=== PATIENT | male | born 1990 | race African-American/Black ===

== ENCOUNTER 2022-12-22 23:41 | Emergency (ER) | payer MEDICAID, OTHER ==
[~2022-12-22] VITALS: Ht 185.4 cm; Wt 73.0 kg
[2022-12-22 23:44] VITALS: O2SAT 98
[2022-12-23] MEDS ORDERED: METH-653 MT (00:15)
[2022-12-23] MEDS ORDERED: ACETAMINOPHEN 325MG TABLET PO ONE (00:15)
[2022-12-23] MEDS ORDERED: METHOCARBAMOL 750MG TABLET PO SCH (00:15)
[2022-12-23] MEDS ORDERED: METHOCARBAMOL 500MG TABLET PO NR (00:30)
[2022-12-23 01:16] VITALS: BP 113/40; PULSE 65; RESP 18; TEMP 98
== END 2022-12-23 01:16 | disposition home or self-care (01) ==
LOC: ER 23:41
DX: S09.90XA Unspecified injury of head, initial encounter (principal); M54.2 Cervicalgia; Z88.1 Allergy status to other antibiotic agents; V49.9XXA Car occupant (driver) (passenger) injured in unspecified traffic accident, initial encounter; Y93.89 Activity, other specified; Y92.89 Other specified places as the place of occurrence of the external cause; Y99.8 Other external cause status
CPT/HCPCS: 99283